=== PATIENT | male | born 1950 | race Two or more races ===

== ENCOUNTER 2019-09-30 11:06 | Outpatient (CLI) | payer OTHER ==
[~2019-09-30] VITALS: Ht 152.4 cm; Wt 86.2 kg
== END 2019-09-30 12:47 | disposition home or self-care (01) ==
LOC: OFIC 805 11:06
DX: H90.3 Sensorineural hearing loss, bilateral (principal); H61.23 Impacted cerumen, bilateral; J31.0 Chronic rhinitis